=== PATIENT | female | born 2000 | race Asian ===

== ENCOUNTER 2020-08-14 11:38 | Emergency (ER) | payer BC ==
[~2020-08-14] VITALS: Ht 162.6 cm; Wt 49.9 kg
[2020-08-14 11:38] VITALS: BP 132/83
--- NOTE | 2020-08-14 11:45 | NUR ---
SEEN AND EXAMINED BY
--- NOTE | 2020-08-14 11:51 | NUR ---
Patient discharged to home in stable condition. Written and verbal after care instructions given. Patient verbalizes understanding of instruction.
== END 2020-08-14 11:52 | disposition home or self-care (01) ==
LOC: ER 11:46
DX: T63.511A Toxic effect of contact with stingray, accidental (unintentional), initial encounter (principal); M79.672 Pain in left foot; R22.42 Localized swelling, mass and lump, left lower limb